=== PATIENT | male | born 1955 | race Caucasian/White ===

== ENCOUNTER 2016-07-05 19:10 | Emergency (ER) | payer OTHER ==
[~2016-07-05 19:10] MED LIST: Iopamidol 370 76% 125 ML VIAL FS ONE; Nitroglycerin 0.4 MG TAB 1 EACH ONE; Sodium Chloride 0.9% 1,000 ML BAG ONE; Sodium Chloride 0.9% 100 ML BAG ONE
[2016-07-05] MEDS ORDERED: Nitroglycerin 0.4 MG TAB 1 EACH ONE (19:43)
[2016-07-05 19:57] LABS: #Basophils 0.1 thou/uL (0.0-0.2); #Eosinphils 0.2 thou/uL (0.0-0.7); #Lymphocytes 1.8 thou/uL (1.20-3.40); #Monocytes 0.5 thou/uL (0.11-0.59); #Neutrophils 4.3 thou/uL (1.40-6.50); %Basophils 1.1 % (0.0-1.0); %Eosinophils 2.5 % (0.0-10.0); %Monocytes 7.3 % (0.0-10.0); %Neutrophils 63.1 % (42.0-75.0); Mean Corpuscular HGB CONC 34.5 g/dL (32.0-36.0); Mean Corpuscular Hemoglobin 31.8 pg (27.0-31.0); Mean Corpuscular Volume 92.1 fl (80.0-94.0); Mean Platelet Volume 7.8 fL (7.4-10.4); Platelet Count 189 thou/uL (130-400); RBC Distribution Width 12.3 % (11.5-14.5); Red Blood Cell (RBC) Count 5.33 mill/uL (4.70-6.10); White Blood Cell (WBC) Count 6.8 thou/uL (4.8-10.8)
[2016-07-05 20:04] LABS: INR-International Normal Ratio 0.9; Prothrombin Time 12.2 SEC (12.0-14.7)
[2016-07-05 20:05] LABS: PTT 26.8 SEC (22.9-36.1)
[2016-07-05 20:06] LABS: ALT (SGPT) Less than 6 U/L (0-55); AST (SGOT) 14 U/L (5-34); Albumin 4.1 g/dL (3.4-4.8); Alkaline Phosphatase 121 U/L (40-150); Anion Gap 16 mmol/L (10-20); BUN (Urea Nitrogen) 22 mg/dL (8.4-25.7); Bilirubin, Total 0.6 mg/dL (0.2-1.2); CK (CPK) 167 U/L (30-200); Calc. Creatinine Clearance 0 mL/min (70-130); Calcium 9.2 mg/dL (7.8-10.44); Carbon Dioxide 24 mmol/L (23-31); Chloride 108 mmol/L (98-107); Estimated GFR-MDRD Greater than 90; Globulin 2.6 g/dL (2.4-3.5); Glucose 150 mg/dL (80-115); Potassium 4.3 mmol/L (3.5-5.1); Protein, Total 6.7 g/dL (5.8-8.1); Sodium 144 mmol/L (136-145)
[2016-07-05 20:08] LABS: CKMB 2.4 ng/mL (0-6.6)
--- NOTE | 2016-07-05 21:01 | RAD ---
SINGLE VIEW OF THE CHEST: Comparison: 12-17-15 History: Chest pain. FINDINGS: Single view of the chest shows a normal sized cardiomediastinal silhouette. The patient is status p ost sternotomy. A generator projects over the left chest wall. There is no evidence of consolidati on, mass, or pleural effusions. IMPRESSION: No evidence of acute cardiopulmonary disease. POS: [facility]
--- NOTE | 2016-07-05 22:05 | CT ---
CTA OF THE CHEST WITH CONTRAST: Comparison: 05-17-13 History: Squeezing chest pain. Technique: Multiple contiguous axial images were obtained in a CTA of the chest with contrast per p ulmonary embolism protocol. 3D oblique MIP reformats and direct coronal reformats were performed. FINDINGS: The pulmonary arteries are well opacified without filling defects to suggest pulmonary emboli. The heart is enlarged. No hilar or mediastinal lymphadenopathy are seen. The patient is status post CA BG. No focal infiltrates are seen in the lungs. No suspicious pulmonary nodules. No pneumothorax or pl eural effusion are present. A generator is seen in the left chest wall. Mild degenerative changes are seen in the spine. The v isualized subdiaphragmatic structures are unremarkable. IMPRESSION: No evidence of pulmonary thromboembolism. POS: [facility]
== END 2016-07-05 21:03 | disposition short-term general hospital (02) ==
LOC: MADERS 19:10
DX: I20.0 Unstable angina (principal); G21.11 Neuroleptic induced parkinsonism; I25.10 Atherosclerotic heart disease of native coronary artery without angina pectoris; I50.9 Heart failure, unspecified; E78.5 Hyperlipidemia, unspecified; F32.9 Major depressive disorder, single episode, unspecified; Z79.899 Other long term (current) drug therapy
CPT/HCPCS: 71010; 71275; 80053; 82550; 82553; 83880; 84484; 85025; 85379; 85610; 85730; 93005; 94760; 96360; J7050

== ENCOUNTER 2016-09-01 13:29 | Emergency (ER) | payer OTHER ==
[2016-09-01] MEDS ORDERED: Nitroglycerin 0.4 MG TAB 1 EACH ONE (13:51)
[2016-09-01] MEDS ORDERED: Nitroglycerin 2% Ointment 1 INCH/1 GM Packet ONE (14:08)
[2016-09-01 14:23] LABS: Hemoglobin 16.6 g/dL (14.0-18.0); Mean Corpuscular HGB CONC 33.7 g/dL (32.0-36.0); Mean Corpuscular Hemoglobin 31.4 pg (27.0-31.0); Mean Platelet Volume 7.5 fL (7.4-10.4); Platelet Count 177 thou/uL (130-400); RBC Distribution Width 12.3 % (11.5-14.5); Red Blood Cell (RBC) Count 5.29 mill/uL (4.70-6.10); White Blood Cell (WBC) Count 6.7 thou/uL (4.8-10.8)
[2016-09-01 14:24] LABS: %Basophils 1.3 % (0.0-1.0); %Eosinophils 2.3 % (0.0-10.0); %Lymphocytes 25.5 % (21.0-51.0); %Monocytes 7.1 % (0.0-10.0); %Neutrophils 63.8 % (42.0-75.0)
[2016-09-01 14:25] LABS: #Basophils 0.1 thou/uL (0.0-0.2); #Eosinphils 0.2 thou/uL (0.0-0.7); #Lymphocytes 1.7 thou/uL (1.20-3.40); #Monocytes 0.5 thou/uL (0.11-0.59); #Neutrophils 4.3 thou/uL (1.40-6.50); Anion Gap 13 mmol/L (10-20); BUN (Urea Nitrogen) 24 mg/dL (8.4-25.7); Calc. Creatinine Clearance 0 mL/min (70-130); Carbon Dioxide 29 mmol/L (23-31); Chloride 106 mmol/L (98-107); Estimated GFR-MDRD Greater than 90; Potassium 4.6 mmol/L (3.5-5.1); Sodium 143 mmol/L (136-145)
[2016-09-01 14:26] LABS: ALT (SGPT) 6 U/L (8-55); AST (SGOT) 15 U/L (5-34); Albumin 4.1 g/dL (3.4-4.8); Alkaline Phosphatase 108 U/L (40-150); Bilirubin, Total 0.7 mg/dL (0.2-1.2); CKMB 0.7 ng/mL (0-6.6); Calcium 9.3 mg/dL (7.8-10.44); Globulin 2.6 g/dL (2.4-3.5); Glucose 98 mg/dL (80-115); Protein, Total 6.7 g/dL (5.8-8.1); Troponin I 0.011 ng/mL (< 0.028)
[2016-09-01 14:49] LABS: Clarity Hazy (Clear); Leukocyte Negative (Negative); Nitrite Negative (Negative); pH, Urine 6.5 (5.0-9.0)
[2016-09-01 14:50] LABS: Bilirubin Negative (Negative); Blood, Urine Negative (Negative); Glucose, Urine (Dipstick) Negative (Negative); Protein, Urine (Dipstick) Trace mg/dL (Neg-Trace)
[2016-09-01] MEDS ORDERED: Dexamethasone 4 MG TAB ONE (15:00)
[2016-09-01] MEDS ORDERED: Carbidopa/Levodopa CR 50-200 mg Tablet ONE (15:17)
--- NOTE | 2016-09-01 15:20 | RAD ---
CHEST ONE VIEW: History: Chest pain. Comparison: 07-05-16 FINDINGS: Cardiac silhouette is magnified by projection. Pulmonary vasculature is upper limits of normal. Medi astinum is midline with post-operative change evident. Electronic leads from a stimulator device pro ject over the left neck and chest. There is no lobar consolidation or evidence of pneumothorax. IMPRESSION: 1. No active cardiopulmonary abnormalities are demonstrated. POS: [facility]
[2016-09-01] MEDS ORDERED: Carbidopa/Levodopa 25-100 mg Tablet PO SCH (15:45)
== END 2016-09-01 15:46 ==
LOC: MADERS 13:29
DX: R07.89 Other chest pain (principal); G20 Parkinson's disease; G24.9 Dystonia, unspecified; I25.10 Atherosclerotic heart disease of native coronary artery without angina pectoris; E78.5 Hyperlipidemia, unspecified; R56.9 Unspecified convulsions; F32.9 Major depressive disorder, single episode, unspecified; Z79.899 Other long term (current) drug therapy
CPT/HCPCS: 36415; 71010; 80053; 81003; 82553; 84484; 85025; 85379; 93005; J8540

== ENCOUNTER 2018-01-31 08:33 | Emergency (ER) | payer OTHER ==
[2018-01-31 09:03] LABS: #Eosinphils 0.2 thou/uL (0.0-0.7); #Lymphocytes 1.6 thou/uL (1.20-3.40); #Monocytes 0.4 thou/uL (0.11-0.59); #Neutrophils 3.9 thou/uL (1.40-6.50); %Basophils 0.8 % (0.0-1.0); %Eosinophils 3.1 % (0.0-10.0); %Lymphocytes 25.9 % (21.0-51.0); %Monocytes 7.2 % (0.0-10.0); Hemoglobin 16.2 g/dL (14.0-18.0); Mean Corpuscular HGB CONC 33.4 g/dL (32.0-36.0); Mean Corpuscular Hemoglobin 31.2 pg (27.0-31.0); Mean Corpuscular Volume 93.5 fL (78.0-98.0); Mean Platelet Volume 7.3 fL (7.4-10.4); Platelet Count 199 thou/uL (130-400); RBC Distribution Width 12.2 % (11.5-14.5); Red Blood Cell (RBC) Count 5.18 mill/uL (4.70-6.10); White Blood Cell (WBC) Count 6.1 thou/uL (4.8-10.8)
--- NOTE | 2018-01-31 09:17 | RAD ---
PORTABLE CHEST: Date: 01/31/18 HISTORY: Chest pain. COMPARISON: 09/01/16. FINDINGS: Heart size is borderline. There are postop sternotomy changes. An electronic device was overlying the left chest leads towards the head. No signs of failure or acute findings. IMPRESSION: No active intrathoracic disease. POS: [facility]
[2018-01-31 09:24] LABS: ALT (SGPT) Less than 7 U/L (8-55); AST (SGOT) 11 U/L (5-34); Albumin 4.1 g/dL (3.4-4.8); Alkaline Phosphatase 112 U/L (40-150); Anion Gap 12 mmol/L (10-20); BUN (Urea Nitrogen) 19 mg/dL (8.4-25.7); Bilirubin, Total 0.9 mg/dL (0.2-1.2); Calc. Creatinine Clearance 0 mL/min (70-130); Calcium 9.1 mg/dL (7.8-10.44); Carbon Dioxide 28 mmol/L (23-31); Chloride 108 mmol/L (98-107); Estimated GFR-MDRD 90; Globulin 2.6 g/dL (2.4-3.5); Glucose 144 mg/dL (80-115); Potassium 4.3 mmol/L (3.5-5.1); Protein, Total 6.7 g/dL (5.8-8.1); Sodium 144 mmol/L (136-145)
[2018-01-31 09:27] LABS: CKMB 0.4 ng/mL (0-6.6); Troponin I 0.046 ng/mL (< 0.028)
[2018-01-31] MEDS ORDERED: Nitroglycerin 2% Ointment 1 INCH/1 GM Packet ONE (09:48)
== END 2018-01-31 10:15 | disposition short-term general hospital (02) ==
LOC: MADERS 08:33
DX: R07.2 Precordial pain (principal); G20 Parkinson's disease; I25.10 Atherosclerotic heart disease of native coronary artery without angina pectoris; I25.2 Old myocardial infarction; E78.5 Hyperlipidemia, unspecified; F32.9 Major depressive disorder, single episode, unspecified; Z79.899 Other long term (current) drug therapy
CPT/HCPCS: 71045; 80053; 82553; 83880; 84484; 85025; 93005; 94760

== ENCOUNTER 2018-02-24 11:05 | Emergency (ER) | payer OTHER ==
--- NOTE | 2018-02-24 11:40 | RAD ---
PORTABLE CHEST 1 VIEW: Date: 02/24/18 Time: 1102 hours HISTORY: Chest pain. FINDINGS/IMPRESSION: Comparison made with exam of 01/31/18. Changes of median sternotomy again seen. The heart size is borderline. Left-sided electronic device i s again noted. The possibility of density in the left lung base cannot be excluded. Dedicated PA and lateral views of the chest would be helpful. POS: [facility]
[2018-02-24] MEDS ORDERED: Nitroglycerin 2% Ointment 1 INCH/1 GM Packet ONE (11:43)
[2018-02-24 11:51] LABS: Hemoglobin 14.5 g/dL (14.0-18.0); Red Blood Cell (RBC) Count 4.72 mill/uL (4.70-6.10); White Blood Cell (WBC) Count 6.3 thou/uL (4.8-10.8)
[2018-02-24 11:52] LABS: #Eosinphils 0.3 thou/uL (0.0-0.7); #Lymphocytes 1.5 thou/uL (1.20-3.40); #Monocytes 0.5 thou/uL (0.11-0.59); #Neutrophils 3.9 thou/uL (1.40-6.50); %Basophils 0.7 % (0.0-1.0); %Eosinophils 4.6 % (0.0-10.0); %Lymphocytes 24.6 % (21.0-51.0); %Monocytes 8.2 % (0.0-10.0); Mean Corpuscular HGB CONC 32.3 g/dL (32.0-36.0); Mean Corpuscular Hemoglobin 30.7 pg (27.0-31.0); Mean Platelet Volume 8.2 fL (7.4-10.4); Platelet Count 203 thou/uL (130-400); RBC Distribution Width 12.5 % (11.5-14.5)
[2018-02-24 11:56] LABS: ALT (SGPT) Less than 7 U/L (8-55); AST (SGOT) 10 U/L (5-34); Albumin 3.9 g/dL (3.4-4.8); Alkaline Phosphatase 112 U/L (40-150); Anion Gap 13 mmol/L (10-20); BUN (Urea Nitrogen) 21 mg/dL (8.4-25.7); Bilirubin, Total 0.6 mg/dL (0.2-1.2); Calc. Creatinine Clearance 0 mL/min (70-130); Calcium 9.1 mg/dL (7.8-10.44); Carbon Dioxide 26 mmol/L (23-31); Chloride 112 mmol/L (98-107); Estimated GFR-MDRD 86; Globulin 2.6 g/dL (2.4-3.5); Glucose 130 mg/dL (80-115); Potassium 4.1 mmol/L (3.5-5.1); Protein, Total 6.5 g/dL (5.8-8.1); Sodium 147 mmol/L (136-145)
[2018-02-24 11:57] LABS: CKMB 4.3 ng/mL (0-6.6); Troponin I 0.065 ng/mL (< 0.028)
--- NOTE | 2018-02-24 13:01 | CT ---
CHEST CT SCAN WITHOUT IV CONTRAST: HISTORY: Abnormal chest x-ray, chest pain. FINDINGS: Minimal linear parenchymal changes are noted in the lung bases bilaterally, right slightly greater th an left as well as some posterior pleural-based positional changes. These findings are nonspecific a nd possibilities include that of some minimal subsegmental atelectasis, chronic change, or mild pneum onitis. No mediastinal mass or adenopathy. No significant pleural effusion or pericardial effusion. IMPRESSION: Mild linear stranding in both lung bases as well as some pleural-based positioned changes, nonspecifi c findings, evidence for mild interstitial pneumonitis, subsegmental atelectasis, or chronic change. POS: [facility]
== END 2018-02-24 12:58 | disposition short-term general hospital (02) ==
LOC: MADERS 11:05
DX: I21.4 Non-ST elevation (NSTEMI) myocardial infarction (principal); E78.5 Hyperlipidemia, unspecified; G20 Parkinson's disease; I25.10 Atherosclerotic heart disease of native coronary artery without angina pectoris; I25.2 Old myocardial infarction; I12.9 Hypertensive chronic kidney disease with stage 1 through stage 4 chronic kidney disease, or unspecified chronic kidney disease; N18.2 Chronic kidney disease, stage 2 (mild); D63.1 Anemia in chronic kidney disease; F32.9 Major depressive disorder, single episode, unspecified; Z79.899 Other long term (current) drug therapy; Z79.82 Long term (current) use of aspirin
CPT/HCPCS: 36415; 71045; 71250; 80053; 82553; 83880; 84484; 85025; 93005

== ENCOUNTER 2018-03-20 04:43 | Emergency (ER) | payer OTHER ==
[2018-03-20] MEDS ORDERED: Nitroglycerin 2% Ointment 1 INCH/1 GM Packet ONE (05:20)
[2018-03-20] MEDS ORDERED: Mag-Al Plus 1200 MG/1200 MG/120 MG/30 ML UDCUP ONE (05:21)
[2018-03-20] MEDS ORDERED: Lidocaine Viscous Sol 2% 15 ml UD Cup ONE (05:21)
[2018-03-20 05:32] LABS: #Eosinphils 0.4 thou/uL (0.0-0.7); #Monocytes 0.5 thou/uL (0.11-0.59); #Neutrophils 3.6 thou/uL (1.40-6.50); %Basophils 0.5 % (0.0-1.0); %Eosinophils 7.5 % (0.0-10.0); %Monocytes 8.6 % (0.0-10.0); %Neutrophils 65.4 % (42.0-75.0); Hemoglobin 13.5 g/dL (14.0-18.0); Mean Corpuscular HGB CONC 33.3 g/dL (32.0-36.0); Mean Corpuscular Hemoglobin 31.6 pg (27.0-31.0); Mean Corpuscular Volume 94.8 fL (78.0-98.0); Mean Platelet Volume 7.3 fL (7.4-10.4); Platelet Count 186 thou/uL (130-400); RBC Distribution Width 13.4 % (11.5-14.5); Red Blood Cell (RBC) Count 4.27 mill/uL (4.70-6.10); White Blood Cell (WBC) Count 5.5 thou/uL (4.8-10.8)
[2018-03-20 05:36] LABS: ALT (SGPT) Less than 7 U/L (8-55); AST (SGOT) 11 U/L (5-34); Albumin 4.1 g/dL (3.4-4.8); Alkaline Phosphatase 111 U/L (40-150); Anion Gap 12 mmol/L (10-20); BUN (Urea Nitrogen) 21 mg/dL (8.4-25.7); Bilirubin, Total 0.6 mg/dL (0.2-1.2); CK (CPK) 69 U/L (30-200); Calc. Creatinine Clearance 0 mL/min (70-130); Carbon Dioxide 28 mmol/L (23-31); Chloride 109 mmol/L (98-107); Estimated GFR-MDRD 72; Globulin 2.9 g/dL (2.4-3.5); Glucose 175 mg/dL (80-115); Lipase 16 U/L (8-78); Potassium 4.3 mmol/L (3.5-5.1); Sodium 145 mmol/L (136-145)
[2018-03-20 05:42] LABS: CKMB 0.6 ng/mL (0-6.6); Troponin I 0.039 ng/mL (< 0.028)
[2018-03-20 07:09] LABS: Troponin I 0.037 ng/mL (< 0.028)
[2018-03-20 07:24] LABS: CKMB 0.6 ng/mL (0-6.6)
--- NOTE | 2018-03-20 09:22 | RAD ---
CHEST ONE VIEW: INDICATIONS: History of chest pain. COMPARISON: Chest radiograph dated 02/24/2018. FINDINGS: Stable cardiomegaly and midline sternotomy changes. There is no definite consolidation, pleural effu carmen, of pneumothorax is evident. No acute osseous abnormality is noted. IMPRESSION: Stable cardiomegaly. POS: [facility]
== END 2018-03-20 11:00 | disposition home or self-care (01) ==
LOC: MADERS 04:43
DX: I20.8 Other forms of angina pectoris (principal); K29.70 Gastritis, unspecified, without bleeding; E78.5 Hyperlipidemia, unspecified; I10 Essential (primary) hypertension; G20 Parkinson's disease; I25.10 Atherosclerotic heart disease of native coronary artery without angina pectoris; I25.2 Old myocardial infarction; I12.9 Hypertensive chronic kidney disease with stage 1 through stage 4 chronic kidney disease, or unspecified chronic kidney disease; G47.00 Insomnia, unspecified; F32.9 Major depressive disorder, single episode, unspecified; F29 Unspecified psychosis not due to a substance or known physiological condition; Z79.899 Other long term (current) drug therapy; Z79.82 Long term (current) use of aspirin; Z79.84 Long term (current) use of oral hypoglycemic drugs
CPT/HCPCS: 36415; 71045; 80053; 82553; 83605; 83690; 84484; 85025; 93005

== ENCOUNTER 2018-07-18 10:20 | Outpatient (CLI) | payer OTHER ==
--- NOTE | 2018-07-18 12:33 | CT ---
CT HEAD WITHOUT CONTRAST: Date: 07/18/18 Multiple axial tomograms obtained through head without IV enhancement. INDICATION: Dizziness. COMPARISON: 01/22/07. FINDINGS: Bilateral stimulator leads near both frontal lobes anteriorly, with tips located within the thalami b ilaterally. Very mild cortical volume loss. There is no evidence of intracranial hemorrhage, mass, or infarct. Si nuses and mastoids are aerated; however, there is complete opacification of a right sphenoid sinus, w hich is new from the prior exam. IMPRESSION: 1. No acute intracranial abnormality. 2. Bilateral thalamus stimulator devices. 3. Complete opacification of the right sphenoid sinus. POS: [facility]
== END 2018-07-18 10:21 | disposition home or self-care (01) ==
LOC: MADCT 10:20
PROVIDERS: ATTEND Family Medicine
DX: R42 Dizziness and giddiness (principal); J34.89 Other specified disorders of nose and nasal sinuses; Z98.890 Other specified postprocedural states
CPT/HCPCS: 70450

== ENCOUNTER 2019-02-16 22:37 | Emergency (ER) | payer OTHER ==
[2019-02-16 23:50] LABS: #Eosinphils 0.1 thou/uL (0.0-0.7); #Lymphocytes 1.6 thou/uL (1.20-3.40); #Monocytes 0.6 thou/uL (0.11-0.59); #Neutrophils 3.9 thou/uL (1.40-6.50); %Basophils 0.7 % (0.0-1.0); %Eosinophils 1.4 % (0.0-10.0); %Lymphocytes 25.3 % (21.0-51.0); %Monocytes 10.2 % (0.0-10.0); %Neutrophils 62.4 % (42.0-75.0); Hemoglobin 14.4 g/dL (14.0-18.0); Mean Corpuscular HGB CONC 31.3 g/dL (32.0-36.0); Mean Corpuscular Hemoglobin 30.2 pg (27.0-31.0); Mean Corpuscular Volume 96.3 fL (78.0-98.0); Mean Platelet Volume 8.2 fL (7.4-10.4); Platelet Count 148 thou/uL (130-400); Red Blood Cell (RBC) Count 4.78 mill/uL (4.70-6.10); White Blood Cell (WBC) Count 6.2 thou/uL (4.8-10.8)
[2019-02-17 00:06] LABS: ALT (SGPT) Less than 7 U/L (8-55); AST (SGOT) 7 U/L (5-34); Albumin 3.9 g/dL (3.4-4.8); Alcohol Less than 10 mg/dL (Less than 10); Alkaline Phosphatase 84 U/L (40-110); Anion Gap 12 mmol/L (10-20); BUN (Urea Nitrogen) 24 mg/dL (8.4-25.7); Bilirubin, Total 0.7 mg/dL (0.2-1.2); Calc. Creatinine Clearance 0 mL/min (70-130); Calcium 8.9 mg/dL (7.8-10.44); Carbon Dioxide 28 mmol/L (23-31); Chloride 109 mmol/L (98-107); Estimated GFR-MDRD Greater than 90; Globulin 2.1 g/dL (2.4-3.5); Glucose 94 mg/dL (80-115); Potassium 4.1 mmol/L (3.5-5.1); Sodium 145 mmol/L (136-145)
[2019-02-17 00:07] LABS: Alcohol Less than 10 mg/dL (Less than 10); Salicylate Less than 8.0 mg/dL (15.0-30.0)
[2019-02-17 00:19] LABS: Acetaminophen Less than 6.0 mcg/mL (10.0-30.0)
[2019-02-17 01:16] LABS: Bilirubin Small (Negative); Blood, Urine Negative (Negative); Clarity Clear (Clear); Glucose, Urine (Dipstick) 100 mg/dL (Negative); Leukocyte Negative (Negative); Nitrite Negative (Negative); Protein, Urine (Dipstick) 30 mg/dL (Neg-Trace); Urobilinogen > or = 8.0 mg/dL (Less than 2)
[2019-02-17 01:23] LABS: Amphetamine Not Detected (NotDetected); Bacteria/HPF Rare-Few HPF (None Seen); Barbiturates Screen Not Detected (NotDetected); Benzodiazepine Screen Not Detected (NotDetected); Cocaine Metabolite Screen Not Detected (NotDetected); Medtox Control Line Valid? VALID (VALID); Methadone Not Detected (NotDetected); Methamphetamine Not Detected (NotDetected); Opiate Screen Not Detected (NotDetected); Oxycodone Screen Not Detected (NotDetected); Phencyclidine (PCP) Not Detected (NotDetected); RBC/HPF 0-3 HPF (0-3); Squamous Epithelial 0-3 HPF (0-3); THC/Cannabinoid Screen Not Detected (NotDetected); Tricyclic Screen Not Detected (NotDetected); WBC/HPF 0-3 HPF (0-3)
== END 2019-02-17 07:52 ==
LOC: MADERS 22:37
DX: F99 Mental disorder, not otherwise specified (principal); I12.9 Hypertensive chronic kidney disease with stage 1 through stage 4 chronic kidney disease, or unspecified chronic kidney disease; I25.10 Atherosclerotic heart disease of native coronary artery without angina pectoris; I25.2 Old myocardial infarction; E78.5 Hyperlipidemia, unspecified; N40.0 Benign prostatic hyperplasia without lower urinary tract symptoms; F32.9 Major depressive disorder, single episode, unspecified; N18.2 Chronic kidney disease, stage 2 (mild); D64.9 Anemia, unspecified; G47.00 Insomnia, unspecified; Z79.899 Other long term (current) drug therapy; Z79.82 Long term (current) use of aspirin; Z79.01 Long term (current) use of anticoagulants
CPT/HCPCS: 80053; 80306; 80307; 81003; 81015; 85025; 99285

== ENCOUNTER 2020-02-22 11:20 | Outpatient (CLI) | payer OTHER ==
[2020-02-22 11:43] LABS: Bilirubin Negative (Negative); Blood, Urine Negative (Negative); Clarity Clear (Clear); Glucose, Urine (Dipstick) Negative (Negative); Ketone, Urine Negative (Negative); Leukocyte Trace (Negative); Nitrite Negative (Negative); Protein, Urine (Dipstick) Trace mg/dL (Neg-Trace); Urobilinogen 0.2 mg/dL (Less than 2)
== END 2020-02-22 11:21 | disposition home or self-care (01) ==
LOC: MADLABBHPM 11:20
PROVIDERS: ATTEND Family Medicine
DX: R33.9 Retention of urine, unspecified (principal)
CPT/HCPCS: 81003; 87077; 87086; 87186

== ENCOUNTER 2021-09-29 11:22 | Outpatient (CLI) | payer MEDICARE, OTHER ==
[2021-09-29 16:02] LABS: Hemoglobin A1c 5.7 % (4.0-6.0)
== END 2021-09-29 11:23 | disposition home or self-care (01) ==
LOC: MADLAB 11:22
PROVIDERS: ATTEND Family Medicine
DX: E11.9 Type 2 diabetes mellitus without complications (principal)
CPT/HCPCS: 83036

== ENCOUNTER 2022-11-25 14:37 | Emergency (ER) | payer MEDICARE, OTHER ==
[2022-11-25 15:53] LABS: ALT (SGPT) 7 U/L (8-55); AST (SGOT) 14 U/L (5-34); Albumin 3.1 g/dL (3.4-4.8); Alkaline Phosphatase 119 U/L (40-110); Anion Gap 17 mmol/L (10-20); BUN (Urea Nitrogen) 25 mg/dL (8.4-25.7); Bilirubin, Total 0.7 mg/dL (0.2-1.2); CK (CPK) 81 U/L (30-200); Calc. Creatinine Clearance 0 mL/min (70-130); Calcium 8.2 mg/dL (7.8-10.44); Carbon Dioxide 20 mmol/L (23-31); Chloride 115 mmol/L (98-107); Estimated GFR 99; Globulin 3.1 g/dL (2.4-3.5); Glucose 154 mg/dL (80-115); Magnesium 1.7 mg/dL (1.6-2.6); Potassium 3.9 mmol/L (3.5-5.1); Protein, Total 6.2 g/dL (5.8-8.1); Sodium 148 mmol/L (136-145)
[2022-11-25 15:54] LABS: Band 1 % (5-11); Hematocrit 35.3 % (42.0-52.0); Hemoglobin 12.8 g/dL (14.0-18.0); Lymphocytes 1 % (21-51); MDiff Complete? YES; Mean Corpuscular HGB CONC 36.3 g/dL (32.0-36.0); Mean Corpuscular Hemoglobin 33.2 pg (27.0-31.0); Mean Corpuscular Volume 91.5 fl (78.0-98.0); Metamyelocyte 1 % (0-0); Monocytes 1 % (0-10); Neutrophil 96 % (42-75); Platelet Adequacy Comment Appears Adequate; Platelet Count 273 10x3/uL (130-400); Red Blood Cell (RBC) Count 3.86 mill/uL (4.70-6.10); White Blood Cell (WBC) Count 15.5 10x3/uL (4.8-10.8)
[2022-11-25] MEDS ORDERED: Sodium Chloride 0.9% 100 ML ONE (16:28)
[2022-11-25] MEDS ORDERED: cefTRIAXone (ROCEPHIN) 1 GM VIAL ONE (16:28)
[2022-11-25 16:49] LABS: Bilirubin Small (Negative); Blood, Urine Negative (Negative); Clarity Clear (Clear); Glucose, Urine (Dipstick) Negative (Negative); Ketone, Urine 80 mg/dL (Negative); Leukocyte Negative (Negative); Nitrite Negative (Negative); Protein, Urine (Dipstick) 100 mg/dL (Neg-Trace); Specific Gravity, Urine 1.025 (1.005-1.030); pH, Urine 5.5 (5.0-9.0)
[2022-11-25 16:57] LABS: Bacteria/HPF Rare-Few HPF (None Seen); CAUTI Indications for Culture Dysuria,urgency,freq; Mucous/LPF Few LPF (<2+); RBC/HPF 0-3 HPF (0-3); Squamous Epithelial 0-3 HPF (0-3)
[2022-11-25 16:58] LABS: Urine Culture Reflex No No
[2022-11-25] MEDS ORDERED: Aspirin 300 MG Suppository ONE (21:41)
[2022-11-26 01:52] LABS: CKMB 3.3 ng/mL (0-6.6)
[2022-11-26 18:10] LABS: CKMB 5.7 ng/mL (0-6.6)
== END 2022-11-25 22:45 | disposition short-term general hospital (02) ==
LOC: MADERS 14:37
DX: J18.9 Pneumonia, unspecified organism (principal); R77.8 Other specified abnormalities of plasma proteins; I12.9 Hypertensive chronic kidney disease with stage 1 through stage 4 chronic kidney disease, or unspecified chronic kidney disease; N18.2 Chronic kidney disease, stage 2 (mild); I25.10 Atherosclerotic heart disease of native coronary artery without angina pectoris; I25.2 Old myocardial infarction; G47.00 Insomnia, unspecified; D51.9 Vitamin B12 deficiency anemia, unspecified; G40.409 Other generalized epilepsy and epileptic syndromes, not intractable, without status epilepticus; G20 Parkinson's disease
CPT/HCPCS: 36415; 51701; 70450; 71045; 80053; 81001; 82550; 82553; 83605; 83735; 83880; 84484; 85025; 87040; 93005; 94760; 96365; J0696; J3490